=== PATIENT | female | born 1935 | race Asian ===

== ENCOUNTER 2019-06-23 05:53 | Day surgery (SDC) | payer BC, MEDICARE ==
--- NOTE | 2019-06-16 16:00 | Pre-op HX & Phy Repo 2 SIG ---
DATE OF ADMISSION: 06/23/2019 DATE OF PLANNED SURGERY: Scheduled for outpatient surgery, 06/23/2019. HISTORY OF PRESENT ILLNESS: The patient is an 83-year-old [place] female in overall stable health, who had underwent cholecystectomy many years ago and developed a keloid at the umbilical trocar site with an incision just above the umbilicus. Recently, this became irritated and inflamed, and she was treated with steroid lotion and doxycycline orally. It has improved and she is now scheduled to undergo excision of her umbilical keloid. PAST MEDICAL HISTORY: Operations, cholecystectomy 25 years ago. MEDICATIONS: Pills for diabetes that she takes only occasionally. ALLERGIES: None. PHYSICAL EXAMINATION: GENERAL: She is well developed and well nourished, thin. HEENT: Within normal limits. LUNGS: Clear. HEART: Regular rhythm. BREASTS: Without masses, per primary care recently. ABDOMEN: Soft and flat. There is a thick keloid with a scant umbilical cleft. PELVIC/RECTAL: Per primary care. EXTREMITIES: Without edema. NEUROLOGIC: Physiologic. IMPRESSION: Umbilical keloid. PLAN: Excision of umbilical keloid. I have had a full discussion with the patient regarding the nature of the surgery including the likelihood that she will no longer have any umbilicus. Risks including bleeding, infection, recurrent keloid, delayed wound healing, etc. All questions have been answered. She understands and agrees to proceed. Reagan Sepulveda M.D. DR: DRU JOB#: [id number] CC:
--- NOTE | 2019-06-22 15:59 | NUR ---
[employer] translation services used to obtained medical history with records specialist Demetrio ID # [id number].
[2019-06-23] VITALS (10 sets, daily range): BP systolic 107–133; BP diastolic 58–77
[~2019-06-23] VITALS: Ht 152.4 cm; Wt 68.0 kg
[2019-06-23] MEDS ORDERED: ADVAIR 100-501 EACH INH (06:35)
[2019-06-23] MEDS ORDERED: METFORMIN HCL500 M1 ORAL (06:35)
[2019-06-23] MEDS ORDERED: ATORVASTATIN CA40 MG ORAL (06:35)
[2019-06-23] MEDS ORDERED: Lidocaine 1% 10mg/ml/Epi 0.005mg/ml 30ml vial INJ ONE (07:04)
[2019-06-23] MEDS ORDERED: Bupivacaine w/Epi 0.5% 30ml Vial INJ ONE (07:05)
[2019-06-23] MEDS ORDERED: fentaNYL 100 mcg/2 mL IV ONE (07:08)
[2019-06-23] MEDS ORDERED: Propofol 200mg/20ml IV ONE (07:12)
--- NOTE | 2019-06-23 07:23 | Pre-Procedure Note/Attestation ---
Pre-Procedure Note/Attestation Complete Prior to Procedure Planned Procedure: not applicable Procedure Narrative: excision of umbilical keloid Indications for Procedure Pre-Operative Diagnosis: keloid of umbilicus Attestation I attest that I discussed the nature of the procedure; its benefits; risks and complications; and alternatives (and the risks and benefits of such alternatives ), prior to the procedure, with the patient (or the patient's legal school admissions representative). I attest that, if there was a reasonable possibility of needing a blood transfusion, the patient (or the patient's legal school admissions representative) was given the [facility] standardized written summary, pursuant to the Adonay Lorna Blood Safety Act ([place] Health and Safety Code # 1645, as amended). I attest that I re-evaluated the patient just prior to the surgery and that there has been no change in the patient's H&P, except as documented below: none Reagan Sepulveda MD Jun 23, 2019 07:23
--- NOTE | 2019-06-23 07:39 | Anethesia Preoperative Eval ---
Anesthesia Pre-op PMH/ROS General Date of Evaluation: Jun 23, 2019 Time of Evaluation: 07:35 Anesthesiologist: Sugar ASA Score: ASA 2 Mallampati Score Class I : Soft palate, uvula, fauces, pillars visible Class II: Soft palate, uvula, fauces visible Class III: Soft palate, base of uvula visible Class IV: Only hard plate visible Mallampati Classification: Class II Surgeon: Coco Diagnosis: Umbilical keloid scar Surgical Procedure: Excision of keloid scar Anesthesia History: none Family History: no anesthesia problems Allergies: Coded Allergies: No Known Allergies (Unverified , 06/22/19) Medications: see eMAR Patient NPO?: Yes Past Medical History Cardiovascular: Reports: HTN - borderline; Denies: CAD, ND, valve dz, arrhythmia, other Pulmonary: Denies: asthma, COPD, JAMA, other Gastrointestinal/Genitourinary: Reports: GERD - mild; Denies: CRI, ESRD, other Neurologic/Psychiatric: Denies: dementia, CVA, depression/anxiety, TIA, other Endocrine: Reports: DM - stable on pills; Denies: hypothyroidism, steroids, other HEENT: Reports: cataract (L), cataract (R) - s/p bilateral Sx; Denies: glaucoma, OMAHA (L), OMAHA (R), other Hematology/Immune: Denies: anemia, DVT, bleeding disorder, other Musculoskeletal/Integumentary: Reports: OA; Denies: RA, DJD, DDD, edema, other PMH Narrative: as above PSxH Narrative: Cholecystectomy, bilateral cataracts Anesthesia Pre-op Phys. Exam Physician Exam Last Vital Signs Date Time Temp Pulse Resp B/P (MAP) Pulse Ox O2 Delivery O2 Flow Rate FiO2 06/23/19 06:36 97.9 87 18 133/77 98 Room Air Constitutional: NAD Neurologic: CN 2-12 intact Cardiovascular: RRR, no M/R/G Respiratory: CTA Gastrointestinal: S/NT/ND Airway Exam Mallampati Score: Class II MO: limited Neck: stiff ROM: limited Teeth: missing Dentures: upper Anesthesia Pre-op A/P Labs see chart Studies Pre-op Studies: EKG - NSR Risk Assessment & Plan Assessment: ASA 2 Plan: MAC Status Change Before Surgery: No Pre-Antibiotics Drug: Ancef 1gr. Given Within 1 Hr of Incision: Yes Time Given: 07:52 Miles Wooten MD Jun 23, 2019 07:39
[2019-06-23] MEDS ORDERED: Bupivacaine 0.5% Inj 30 ml vial INJ ONE (07:42)
[2019-06-23] MEDS ORDERED: Lidocaine 1% Plain 30 ml INJ ONE (07:42)
[2019-06-23] MEDS ORDERED: LR 1000ml ONE (08:00)
[2019-06-23] MEDS ORDERED: Sterile Water Irrig 1000ml IRRIG ONE (08:00)
[2019-06-23] MEDS ORDERED: NS Irrig 1000ml IRRIG ONE (08:05)
[2019-06-23] MEDS ORDERED: LR 1000ml 1,000 ML IVLG SCH (08:08)
[2019-06-23] MEDS ORDERED: Ketorolac 30mg Inj IV PRN (08:15)
[2019-06-23] MEDS ORDERED: fentaNYL 100 mcg/2 mL IV PRN (08:15)
--- NOTE | 2019-06-23 08:28 | Brief Operative Note ---
Immediate Post Operative Note Operative Note Pre-op Diagnosis: keloid of umbilicus Procedure: excision of umbilical keloid Post-op Diagnosis: same Post-op Diagnosis: same as pre-op Findings: consistent w/pre-op dx studies Surgeon: keyla Anesthesiologist: tia Anesthesia: MAC Specimen: yes - keloid Complications: none Condition: stable Fluids: see anesthesia record Estimated Blood Loss: minimal Drains: none Implant(s) used?: No Reagan Sepulveda MD Jun 23, 2019 08:28
--- NOTE | 2019-06-23 08:32 | Immediate Post-Op Evaluation ---
Immediate Post-Op Evalulation Immediate Post-Op Evalulation Procedure: Excision of umbilical keloid scar Date of Evaluation: Jun 23, 2019 Time of Evaluation: 08:31 IV Fluids: 600 Blood Products: none Estimated Blood Loss: min Urinary Output: none Blood Pressure Systolic: 116 Blood Pressure Diastolic: 58 Pulse Rate: 72 Respiratory Rate: 20 O2 Sat by Pulse Oximetry: 98 Temperature (Fahrenheit): 97.5 Pain Score (1-10): 1 Nausea: No Vomiting: No Complications none Patient Status: awake, patent, none Hydration Status: adequate Miles Wooten MD Jun 23, 2019 08:32
--- NOTE | 2019-06-23 12:56 | 48 Hour Post Anesthesia Eval ---
Post Anesthesia Evaluation Procedure: Excision of umbilical keloid scar Date of Evaluation: Jun 23, 2019 Time of Evaluation: 11:10 Blood Pressure Systolic: 116 0: 72 Pulse Rate: 68 Respiratory Rate: 20 Temperature (Fahrenheit): 97.6 O2 Sat by Pulse Oximetry: 98 Airway: patent Nausea: No Vomiting: No Pain Intensity: 1 Hydration Status: adequate Cardiopulmonary Status: stable Mental Status/LOC: patient returned to baseline Follow-up Care/Observations: n/a Post-Anesthesia Complications: none Follow-up care needed: ready to discharge Miles Wooten MD Jun 23, 2019 12:56
--- NOTE | 2019-06-23 16:56 | Operative Note - Dictated ---
DATE OF OPERATION: 06/23/2019 SURGEON: Reagan Sepulveda M.D. BOX STORAGE WORKER: None. ANESTHESIOLOGIST: Miles Wooten M.D. TYPE OF ANESTHESIA: Local MAC IV sedation. PREOPERATIVE DIAGNOSIS: Keloid at umbilicus at prior incision. POSTOPERATIVE DIAGNOSIS: Keloid at umbilicus at prior incision. OPERATION PERFORMED: Excision of umbilical keloid. DESCRIPTION OF PROCEDURE: The patient was taken to the operating room and under intravenous sedation was prepped and draped in usual fashion. Twenty-five years ago, she had undergone cholecystectomy and in the umbilical incision just above the umbilical cleft, she developed a progressively enlarging keloid, which became painful and irritated. A mixture of 1% Xylocaine plain and 0.5% Marcaine plain was used for local infiltration. The transversely oriented keloid was excised with a transversely oriented elliptical incision achieving hemostasis with cautery. Hemostasis was secured. Incision was closed with mild elevation of the skin flaps and then 3-0 Vicryl subcutaneous sutures followed by 4-0 nylon interrupted vertical mattress sutures. Tincture of benzoin and half-inch Steri-Strips were applied followed by dry sterile dressing. Final sponge and needle counts were correct. The patient tolerated the procedure well and left the operating room in good condition. Reagan Sepulveda M.D. DR: SARA JOB#: [id number] CC:
== END 2019-06-23 09:15 | disposition home or self-care (01) ==
LOC: SUR 05:53
DX: L91.0 Hypertrophic scar (principal); Z90.49 Acquired absence of other specified parts of digestive tract; E11.9 Type 2 diabetes mellitus without complications; Z79.899 Other long term (current) drug therapy; I10 Essential (primary) hypertension; K21.9 Gastro-esophageal reflux disease without esophagitis; M19.90 Unspecified osteoarthritis, unspecified site
CPT/HCPCS: 11404; 82962; J0690; J1885; J2001; J2704; J3010; J3490; 94003; 94150